=== PATIENT | female | born 1990 | race African-American/Black ===

== ENCOUNTER 2020-02-24 11:51 | Emergency (ER) | payer SELFPAY ==
[~2020-02-24] VITALS: Ht 167.6 cm; Wt 89.8 kg
[2020-02-24] MEDS ORDERED: BUPROPION HCL100 MG PO (12:24)
[2020-02-24] MEDS ORDERED: SEROQUEL300 MG PO (12:24)
[2020-02-24] MEDS ORDERED: PREDNISONE 20 MG TAB PO ONE (12:30)
[2020-02-24] MEDS ORDERED: ALBUTEROL/IPRATROPIUM 3 ML NEB NEB ONE (12:30)
[2020-02-24] MEDS ORDERED: ALBUTEROL SULF 0.083% NEB SOLN 3 ML NEB ONE (12:35)
--- NOTE | 2020-02-24 13:58 | Diagnostic Imaging Report ---
EXAM: CXR 2 VIEW - [facility] DATE: 02/24/2020 1:20 PM INDICATION: Shortness of breath COMPARISON: None FINDINGS/IMPRESSION: The trachea is midline. There are minimally increased interstitial markings present which are nonspecific. There is no evidence for large focal consolidation, pneumothorax, or significant volume pleural effusion. The cardiomediastinal silhouette and pulmonary vasculature are within normal limits. No acute osseous abnormality is identified. Signed by: Dr. Yayo Mike MD on 02/24/2020 1:55 PM
[2020-02-24] MEDS ORDERED: PROAIR HFA INH8.5 GM PO (14:35)
[2020-02-24] MEDS ORDERED: PREDNISONE20 MG PO (14:35)
[2020-02-24] MEDS ORDERED: AZITHROMYCIN500 MG PO (14:35)
--- NOTE | 2020-02-24 14:36 | Emergency Department Note ---
History of Present Illnes History of Present Illness Chief Complaint: sob/cough/ wheezing History of Present Illness This is a 29 year old female. was doing well prior to this. 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 Onset (how long ago): hour(s) (1.5) Location: see above Quality: see above Radiation: Reports non-radiation Severity: moderate Onset quality: gradual Duration (how long): hour(s) (1.5) Timing of current episode: constant Progression: unchanged Chronicity: recurrent (asthma) Context: Denies recent illness, Denies recent surgery, Denies recent immobilization, Denies recent travel, Denies trauma/injury, Denies new medicatio ns, Denies hx of DVT/PE, Denies non-compliance w/ medications Relieving factors: rest Exacerbating factors: movement Associated symptoms: Reports cough, Reports shortness of breath Treatments prior to arrival: none Past Medical/Family History Physician Review I have reviewed the patient's past medical and family history. Any updates have been documented here. Past Medical History Recent Fever: No Clinical Suspicion of Infectio: No New/Unexplained Change in Ment: No Past Medical History: Asthma, Other Mental Illness Other Medical History: Bipolar Schizophrenia Past Surgical History: T&A Social History Smoking Cessation: Never Smoker Counseling Performed: No Any Illegal Drug Use: No Physically hurt or threatened: No Family History Family history of heart diseas: No Other Any Pre-Existing Lines (PICC,: No Is patient up to date on immun: No Review of Systems Review of Systems Constitutional: Reports no symptoms EENTM: Reports no symptoms Cardiovascular: Reports as per HPI Respiratory: Reports as per HPI Gastrointestinal: Reports no symptoms Genitourinary: Reports no symptoms Musculoskeletal: Reports no symptoms Integumentary: Reports no symptoms Neurological: Reports no symptoms Psychological: Reports no symptoms Endocrine: Reports no symptoms Hematological/Lymphatic: Reports no symptoms Review of other systems: All other systems negative Physical Exam Related Data Allergies: Coded Allergies: shellfish derived (Verified Allergy, Severe, anaphylaxis, 02/24/20) Triage Vital Signs Vital Signs Date Time Temp Pulse Resp B/P (MAP) Pulse Ox O2 Delivery O2 Flow Rate FiO2 02/24/20 12:20 98.3 102 18 134/67 98 Room Air Vital signs reviewed: Yes Physical Exam CONSTITUTIONAL Constitutional: Present well-developed, Present well-nourished HENT HENT: Present normocephalic, Present atraumatic, Present oropharynx clear/moist, Present nose normal HENT L/R: Present left ext ear normal, Present right ext ear normal EYES Eyes: Reports PERRL, Reports conjunctivae normal NECK Neck: Present ROM normal PULMONARY Pulmonary: Present effort normal, Present other (bilateral wheezes) CARDIOVASCULAR Cardiovascular: Present regular rhythm, Present heart sounds normal, Present capillary refill normal, Present normal rate GASTROINTESTINAL Abdominal: Present soft, Present nontender, Present bowel sounds normal GENITOURINARY Genitourinary: Present exam deferred SKIN Skin: Present warm, Present dry MUSCULOSKELETAL Musculoskeletal: Present ROM normal NEUROLOGICAL Neurological: Present alert, Present oriented x 3, Present no gross motor or sensory deficits PSYCHOLOGICAL Psychological: Present mood/affect normal, Present judgement normal Results Imaging Imaging results reviewed: Yes Impressions [place] [id number] Patient Name: RACHID RATLIFF MR #: [id number] : 1990 Age/Sex: 29/F Req #: [id number] Adm Physician: Ordered by: SHEREE CROWLEY Report #: [id number] Location: [facility] Room/Bed: Procedure: [id number] HOPD/CXR 2 VIEW - [facility] Exam Date: 02/24/20 Exam Time: 1325 REPORT STATUS: Signed EXAM: CXR 2 VIEW - [facility] DATE: 02/24/2020 1:20 PM INDICATION: Shortness of breath COMPARISON: None FINDINGS/IMPRESSION: The trachea is midline. There are minimally increased interstitial markings present which are nonspecific. There is no evidence for large focal consolidation, pneumothorax, or significant volume pleural effusion. The cardiomediastinal silhouette and pulmonary vasculature are within normal limits. No acute osseous abnormality is identified. Signed by: Dr. Yayo Estes MD on 02/24/2020 1:55 PM Dictated By: YAYO ESTES MD 135 Transcribed By: GINETTE on 02/24/20 1355 COPY TO: SHEREE CROWLEY~ Procedures 12 Lead ECG Interpretation ECG Interpretation : ECG: ECG 1 Date: Feb 24, 2020 Time: 12:06 Rhythm: sinus tachycardia Rate: tachycardia BPM: 101 QRS axis: normal ST segments normal: Yes T waves normal: Yes Clinical Impression: abnormal ECG (st) Assessment & Plan Medical Decision Making MDM asthma/bronchitis Reassessment Reassessment symptoms resolved s/p nebs Assessment & Plan Final Impression: (1) Asthma exacerbation (2) Acute bronchitis Depart Disposition: HOME, SELF-CARE Last Vital Signs Date Time Temp Pulse Resp B/P (MAP) Pulse Ox O2 Delivery O2 Flow Rate FiO2 02/24/20 12:20 98.3 102 18 134/67 98 Room Air Home Meds Active Scripts Azithromycin (AZITHROMYCIN) 500 Mg Tablet, 500 MG PO DAILY, #5 TAB START TODAY Prov:SHEREE CROWLEY 02/24/20 Prednisone (PREDNISONE) 20 Mg Tab, 60 MG PO DAILY, #15 TAB take all 3 20mg pills at once. start tomorrow Prov:SHEREE CROWLEY 02/24/20 Albuterol Sulf* (PROAIR HFA INHALER*) 8.5 Gm Inh, 2 INH PO Q4HR PRN for SHORTNESS OF BREATH, #1 INH dispense with spacer Prov:SHEREE CROWLEY 02/24/20 Reported Medications Quetiapine Fumarate (SEROQUEL) 300 Mg Tablet, 300 MG PO HS, TAB 02/24/20 Bupropion Hcl (BUPROPION HCL) 100 Mg Tablet, 450 MG PO DAILY, #30 TAB 02/24/20 Medications in the ED Albuterol/ Ipratropium 6 ml ONCE ONCE NEB Last administered on 02/24/20at 12:40; Admin Dose 6 ML; Start 02/24/20 at 12:30; Stop 02/24/20 at 12:31; Status DC Prednisone 80 mg ONCE ONCE PO Last administered on 02/24/20at 12:40; Admin Dose 80 MG; Start 02/24/20 at 12:30; Stop 02/24/20 at 12:33; Status DC Albuterol Sulfate 6 ml STK-MED ONCE .ROUTE ; Start 02/24/20 at 12:35; Stop 02/24/20 at 12:31; Status DC SHEREE CROWLEY Feb 24, 2020 14:36
[2020-02-24 14:44] VITALS: BP 139/83
== END 2020-02-24 14:48 | disposition home or self-care (01) ==
LOC: FSED 12:17
DX: J20.9 Acute bronchitis, unspecified (principal); J45.901 Unspecified asthma with (acute) exacerbation; R94.31 Abnormal electrocardiogram [ECG] [EKG]; R05 Cough; F20.9 Schizophrenia, unspecified
CPT/HCPCS: 71046; 81003; 81025; 93005; 99284; J7512